=== PATIENT | male | born 1970 | race African-American/Black ===

== ENCOUNTER → 2025-06-09 | Day surgery (SDC) | payer BC ==
[~2025-06-09] MED LIST: ALLOPURINOL100 MG PO; B12 IM; FENTANYL CITRATE/PF 100MCG/2 ML INJ ONE; KETAMINE HCL INJ 50 MG/ML 10 ML VIAL ONE; LIDOCAINE HCL 2% LOCAL INJ 5 ML SDV VIAL INJ ONE; ONDANSETRON HCL INJ 2MG/ML 2ML 2 MG/ML VIAL ONE; PROPOFOL IV EMULSION 10 MG/ML 20 ML VIAL ONE; PROPOFOL IV EMULSION 50 ML IV ONE
[2025-06-09] MEDS: LACTATED RINGER'S 1,000 ML ONE (08:33)
[2025-06-09 10:34] VITALS: TEMP 97.8
[2025-06-09 11:00] VITALS: BP 144/95; PULSE 63; RESP 16; O2SAT 99
== END | disposition home or self-care (01) ==
LOC: OR 08:07
PROVIDERS: ATTEND Internal Medicine Gastroenterology
DX: Z12.11 Encounter for screening for malignant neoplasm of colon (principal); D12.3 Benign neoplasm of transverse colon; D12.0 Benign neoplasm of cecum; D12.2 Benign neoplasm of ascending colon; D12.4 Benign neoplasm of descending colon; K57.30 Diverticulosis of large intestine without perforation or abscess without bleeding; K64.8 Other hemorrhoids; Z80.0 Family history of malignant neoplasm of digestive organs; Z68.34 Body mass index [BMI] 34.0-34.9, adult; Z01.810 Encounter for preprocedural cardiovascular examination; Z79.899 Other long term (current) drug therapy
CPT/HCPCS: 45384; 45385; 93005; J2003; J2405; J2704 ×2; J3010; J7121